=== PATIENT | male | born 1990 | race Caucasian/White ===

== ENCOUNTER 2018-04-25 13:48 | Emergency (ER) | payer MEDICAID ==
[~2018-04-25] VITALS: Ht 170.2 cm; Wt 70.5 kg
[2018-04-25 13:57] VITALS: Ht 170.2 cm; Wt 70.5 kg
[2018-04-25] MEDS ORDERED: ROBAXIN500 MG PO (17:30)
[2018-04-25] MEDS ORDERED: TORADOL10 MG PO (17:30)
[2018-04-25 18:06] VITALS: BP 152/90
== END 2018-04-25 18:08 | disposition home or self-care (01) ==
LOC: D.ER 13:48
DX: S16.1XXA Strain of muscle, fascia and tendon at neck level, initial encounter (principal); V49.9XXA Car occupant (driver) (passenger) injured in unspecified traffic accident, initial encounter; Y93.89 Activity, other specified; Y92.410 Unspecified street and highway as the place of occurrence of the external cause; S29.012A Strain of muscle and tendon of back wall of thorax, initial encounter; F17.200 Nicotine dependence, unspecified, uncomplicated